=== PATIENT | female | born 1945 | race Caucasian/White ===

== ENCOUNTER 2020-08-17 11:34 | Inpatient (IN) | payer MEDICARE, OTHER ==
[~2020-08-17] VITALS: Ht 167.6 cm; Wt 96.9 kg
[2020-08-17] MEDS ORDERED: MORPHINE SULFATE 4 MG/ML VIAL. IV/SQ PRN (11:45)
[2020-08-17] MEDS ORDERED: NITROGLYCERIN SUBLINGUAL 0.4 MG BOTTLE OF 25. SL PRN ×2 (11:45→19:15)
[2020-08-17 12:01] LABS: BASO % 1 % (0-3); EOS # 0.1 x10^3/uL (0.0-0.7); EOS % 1 % (0-3); HEMATOCRIT 46.3 % (36.0-47.0); HEMOGLOBIN 15.7 g/dL (12.0-15.5); LYMPH # 1.3 x10^3/uL (1.0-4.8); LYMPH % 18 % (24-48); MEAN CORPUSCULAR HEMOGLOBIN 32 pg (25-35); MEAN CORPUSCULAR HGB CONC 34 g/dL (31-37); MEAN CORPUSCULAR VOLUME 95 fL (79-100); MONO # 0.5 x10^3/uL (0.0-1.1); MONO % 8 % (0-9); NEUT # 5.3 x10^3/uL (1.8-7.7); NEUT % 73 % (31-73); PLATELET COUNT 201 x10^3/uL (140-400); RED BLOOD COUNT 4.89 x10^6/uL (3.50-5.40); RED CELL DISTRIBUTION WIDTH 14.2 % (11.5-14.5); WHITE BLOOD COUNT 7.3 x10^3/uL (4.0-11.0)
--- NOTE | 2020-08-17 12:04 | RAD ---
XR CHEST 1V CLINICAL INDICATIONS: Chest pain COMPARISON: None available. Findings: No acute lung infiltrate or pleural effusion or pulmonary edema or lung mass or pneumothora x is seen. Cardiomegaly is evident. The pulmonary vasculature, mediastinum and both vicky are unremark able. IMPRESSION: Cardiomegaly. No acute lung infiltrate. Electronically signed by: Nito Davison MD (08/17/2020 12:01 PM) [id number]
[2020-08-17 12:18] LABS: CALCIUM 8.5 mg/dL (8.5-10.1); CREATININE 0.6 mg/dL (0.6-1.0)
[2020-08-17 12:24] LABS: ALBUMIN 3.4 g/dL (3.4-5.0); ALBUMIN/GLOBULIN RATIO 0.9 (1.0-1.7); MAGNESIUM 2.3 mg/dL (1.8-2.4); TOTAL BILIRUBIN 0.8 mg/dL (0.2-1.0)
[2020-08-17] MEDS ORDERED: ALBUTEROL SULFATE 8GM INHALER. INH SCH (12:45)
[2020-08-17] MEDS ORDERED: DEXAMETHASONE SOD PHOS 20 MG/5 ML VIAL. IV ONE (12:45)
--- NOTE | 2020-08-17 12:50 | PHYS DOC ---
Past Medical History Past Medical History: Arthritis, Asthma, CAD, COPD, Diverticulitis Past Surgical History: Cholecystectomy, Hysterectomy Additional Past Surgical Histo: Partial Hysterectomy Smoking Status: Current Every Day Smoker Alcohol Use: None General Adult EDM: Chief Complaint: SHORTNESS OF BREATH HPI: HPI: Patient is a 74 year old female with a history of COPD, asthma, arthritis, CAD, current smoker, who presents to the ED today with evaluated for shortness of breath and chest pressure. She states shortness of breath has been going on for months. She states since yesterday she has had increased shortness of breath and chest pressure especially on exertion. Denies any fever. Reports chronic cough from COPD. States she had a negative Covid test a week ago. She states a week ago she had a cardiac cath with stent placement at [facility]. Denies any actual chest pain. Review of Systems: Review of Systems: Constitutional: Denies fever or chills. [] Eyes: Denies change in visual acuity. [] HENT: Denies nasal congestion or sore throat. [] Respiratory: Reports chronic cough and shortness of breath. [] Cardiovascular: Reports chest pressure. Denies chest pain or edema. [] GI: Denies abdominal pain, nausea, vomiting, bloody stools or diarrhea. [] : Denies dysuria. [] Musculoskeletal: Denies back pain or joint pain. [] Integument: Denies rash. [] Neurologic: Denies headache, focal weakness or sensory changes. [] Psychiatric: Denies depression or anxiety. [] Heart Score: C/O Chest Pain: No HEART Score for Chest Pain: HEART Score for Chest Pain Response (Comments) Value History Slighlty/Non-Suspicious 0 ECG Normal 0 Age > 65 2 Risk Factors 1 or 2 Risk Factors 1 Troponin < Normal Limit 0 Total 3 Risk Factors: Risk Factors: DM, Current or recent (<one month) smoker, HTN, HLP, family history of CAD, obesity. Risk Scores: Score 0 - 3: 2.5% MACE over next 6 weeks - Discharge Home Score 4 - 6: 20.3% MACE over next 6 weeks - Admit for Clinical Observation Score 7 - 10: 72.7% MACE over next 6 weeks - Early Invasive Strategies Current Medications: Current Medications Medications (Trade) Dose Ordered Sig/Melonie Start Time Stop Time Status Last Admin Dose Admin Albuterol Sulfate (Ventolin Hfa) 2 puff PRN QID 08/17/20 12:45 Dexamethasone Sodium Phosphate (Decadron) 10 mg 1X ONCE 08/17/20 12:45 08/17/20 12:46 Morphine Sulfate (Morphine Sulfate) 4 mg PRN Q15MIN PRN 08/17/20 11:45 08/18/20 11:44 Nitroglycerin (Nitrostat) 0.4 mg PRN Q5MIN PRN 08/17/20 11:45 08/18/20 11:44 Allergies: Allergies: Allergies Coded Allergies Type Severity Reaction Last Updated Verified propoxyphene Allergy Severe 08/17/20 Yes Penicillins Allergy Intermediate 08/17/20 Yes codeine Allergy Intermediate 08/17/20 Yes tetanus and diphtheria toxoids Allergy Intermediate 08/17/20 Yes tuberculin,PPD,multi-puncture Allergy Intermediate 08/17/20 Yes Physical Exam: PE: Constitutional: Well developed, well nourished, no acute distress, non-toxic appearance. [] HENT: Normocephalic, atraumatic, bilateral external ears normal, oropharynx moist, no oral exudates, nose normal. [] Eyes: PERRLA, EOMI, conjunctiva normal, no discharge. [] Neck: Normal range of motion, no tenderness, supple, no stridor. [] Cardiovascular:Heart rate regular rhythm, no murmur [] Lungs & Thorax: Diffuse wheezing throughout the lung bases Abdomen: Bowel sounds normal, soft, no tenderness, no masses, no pulsatile masses. [] Skin: Warm, dry, no erythema, no rash. [] Back: No tenderness, no CVA tenderness. [] Extremities: No tenderness, no cyanosis, no clubbing, ROM intact, no edema. [] Neurologic: Alert and oriented X 3, normal motor function, normal sensory function, no focal deficits noted. [] Psychologic: Affect normal, judgement normal, mood normal. [] Current Patient Data: Labs: Laboratory Tests Test 08/17/20 11:46 White Blood Count 7.3 x10^3/uL (4.0-11.0) Red Blood Count 4.89 x10^6/uL (3.50-5.40) Hemoglobin 15.7 g/dL (12.0-15.5) H Hematocrit 46.3 % (36.0-47.0) Mean Corpuscular Volume 95 fL (79-100) Mean Corpuscular Hemoglobin 32 pg (25-35) Mean Corpuscular Hemoglobin Concent 34 g/dL (31-37) Red Cell Distribution Width 14.2 % (11.5-14.5) Platelet Count 201 x10^3/uL (140-400) Neutrophils (%) (Auto) 73 % (31-73) Lymphocytes (%) (Auto) 18 % (24-48) L Monocytes (%) (Auto) 8 % (0-9) Eosinophils (%) (Auto) 1 % (0-3) Basophils (%) (Auto) 1 % (0-3) Neutrophils # (Auto) 5.3 x10^3/uL (1.8-7.7) Lymphocytes # (Auto) 1.3 x10^3/uL (1.0-4.8) Monocytes # (Auto) 0.5 x10^3/uL (0.0-1.1) Eosinophils # (Auto) 0.1 x10^3/uL (0.0-0.7) Basophils # (Auto) 0.0 x10^3/uL (0.0-0.2) Sodium Level 138 mmol/L (136-145) Potassium Level 5.0 mmol/L (3.5-5.1) Chloride Level 102 mmol/L (98-107) Carbon Dioxide Level 28 mmol/L (21-32) Anion Gap 8 (6-14) Blood Urea Nitrogen 11 mg/dL (7-20) Creatinine 0.6 mg/dL (0.6-1.0) Estimated GFR (Cockcroft-Gault) 98.0 BUN/Creatinine Ratio 18 (6-20) Glucose Level 109 mg/dL (70-99) H Calcium Level 8.5 mg/dL (8.5-10.1) Magnesium Level 2.3 mg/dL (1.8-2.4) Total Bilirubin 0.8 mg/dL (0.2-1.0) Aspartate Amino Transferase (AST) 18 U/L (15-37) Alanine Aminotransferase (ALT) 23 U/L (14-59) Alkaline Phosphatase 82 U/L (46-116) Troponin I Quantitative < 0.017 ng/mL (0.000-0.055) JR-Agu-Z-Type Natriuretic Peptide 1627 pg/mL (0-124) H Total Protein 7.0 g/dL (6.4-8.2) Albumin 3.4 g/dL (3.4-5.0) Albumin/Globulin Ratio 0.9 (1.0-1.7) L Thyroid Stimulating Hormone (TSH) 1.577 uIU/mL (0.358-3.74) Laboratory Tests 08/17/20 11:46 Laboratory Tests 08/17/20 11:46 Vital Signs: Vital Signs Date Time Temp Pulse Resp B/P (MAP) Pulse Ox O2 Delivery O2 Flow Rate FiO2 08/17/20 11:34 97.7 76 20 121/76 (91) 97 Nasal Cannula 3.0 97.7 EKG: EK Interpreted by Dr. Chairez Sinus rhythm with LBBB HR 74 no STEMI[] Radiology/Procedures: Radiology/Procedures: []PROCEDURE: PORTABLE CHEST 1V XR CHEST 1V CLINICAL INDICATIONS: Chest pain COMPARISON: None available. Findings: No acute lung infiltrate or pleural effusion or pulmonary edema or lung mass or pneumothorax is seen. Cardiomegaly is evident. The pulmonary vasculature, mediastinum and both vicky are unremarkable. IMPRESSION: Cardiomegaly. No acute lung infiltrate. Electronically signed by: Nito Davison MD (08/17/2020 12:01 PM) [id number] DICTATED and SIGNED BY: NITO DAVISON MD DATE: 08/17/20 [id number] 0 Course & Med Decision Making: Course & Med Decision Making Pertinent Labs and Imaging studies reviewed. (See chart for details) This is a 74-year-old female patient presented to the ED today with complaints o f shortness of breath and chest pressure, shortness of breath is chronic due to her COPD but has gotten worse since yesterday with chest pressure that began yesterday. O2 sats were hanging around 90% when EMS picked patient and she was put on oxygen 3 L. She states she had a negative Covid test last week. She also had cardiac cath with stent placement last week EKG is negative for any acute findings, chest x-ray is negative for any acute findings, troponin is normal, CBC CMP with no acute findings, BNP 1672. Spoke to Dr. Benoit who accepted patient for admission Routine consult placed for cardiology and fine patcher Austin Disclaimer: [place] Disclaimer: This electronic medical record was generated, in whole or in part, using a voice recognition dictation system. Departure Departure Impression: Primary Impression: COPD exacerbation Additional Impressions: Chest pressure Smoking addiction Disposition: 09 ADMITTED INPT THIS HOSP Condition: STABLE Referrals: SANJU NELSON (PCP) WINDY TROY APRN Aug 17, 2020 12:50
[2020-08-17] MEDS ORDERED: fentaNYL PF VIAL 100 MCG/2 ML VIAL IV PRN (14:15)
[2020-08-17] MEDS ORDERED: ONDANSETRON PF 4 MG/2 ML VIAL. IV PRN (14:15)
[2020-08-17] MEDS ORDERED: ACETAMINOPHEN 325 MG TABLET. PO PRN (14:15)
--- NOTE | 2020-08-17 14:51 | HP ---
ADMIT DATE: 08/17/2020 CHIEF COMPLAINT: Shortness of breath. HISTORY OF PRESENT ILLNESS: The patient is a pleasant 74-year-old female who continues to smoke a pack per day. She has probable near end-stage COPD. Basically, she presented with shortness of breath that has been occurring for several days, rated at 7/10. She has associated chest pressure. She increased her home meds, but that did not work, describes her symptoms as irritating. I discussed the case with the ER physician. We are going to admit the patient and consult Pulmonary Medicine and treat her for COPD. It should be noted that she did have a negative COVID test a week ago. PAST MEDICAL HISTORY: COPD, tobacco abuse, arthritis, asthma, CAD, diverticulitis, cholecystectomy, partial hysterectomy. ALLERGIES: PENICILLIN, CODEINE, PROPOXYPHENE NAPSYLATE, TETANUS, DIPHTHERIA, TUBERCULOSIS. FAMILY HISTORY: Diabetes. SOCIAL HISTORY: She continues to smoke a pack per day. 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 MEDICATIONS: Reviewed, please refer to the MRAD. REVIEW OF SYSTEMS: GENERAL: No history of weight change, weakness or fevers. SKIN: No bruising, hair changes or rashes. EYES: No blurred, double or loss of vision. NOSE AND THROAT: No history of nosebleeds, hoarseness or sore throat. HEART: No history of palpitations, chest pain or shortness of breath on exertion. LUNGS: She complains of shortness of breath and cough. GASTROINTESTINAL: Denies changes in appetite, nausea, vomiting, diarrhea or constipation. GENITOURINARY: No history of frequency, urgency, hesitancy or nocturia. NEUROLOGIC: Denies history of numbness, tingling, tremor or weakness. PSYCHIATRIC: No history of panic, anxiety or depression. ENDOCRINE: No history of heat or cold intolerance, polyuria or polydipsia. EXTREMITIES: Denies muscle weakness, joint pain, pain on walking or stiffness. PHYSICAL EXAMINATION: VITALS: Within normal limits and are stable. GENERAL: No apparent distress. Alert and oriented. HEENT: Normal cephalic atraumatic, external auditory canals are patent. Eyes: Extraocular muscles are intact, pupils are equally round and reactive to light and accommodation. MUSCULOSKELETAL: Well developed, well nourished, good range of motion. ENDOCRINE: No thyromegaly was palpated. LYMPHATICS: No cervical chain or axillary nodes were noted. HEMATOPOIETIC: No bruising. NECK: Supple, no JVD, no thyromegaly was noted. LUNGS: She has decreased breath sounds with some slight crackles. HEART: RRR, S1, S2 present. Peripheral pulses intact, no obvious murmurs were noted. ABDOMEN: Soft, nontender. Positive bowel sounds no organomegaly, normal bowel sounds. EXTREMITIES: Without any cyanosis, clubbing, or edema. Pedal pulses intact, Homans sign is negative. NEUROLOGIC: Normal speech, normal tone. A and O x 3, moves all extremities, no obvious focal deficits. PSYCHIATRIC: Normal affect, normal mood. Stable. SKIN: No ulcerations or rashes, good skin turgor, no jaundice. VASCULAR: Good capillary refill, neurovascular bundle appears to be intact. LABORATORY DATA: White count 7, hemoglobin 15.7, platelets 201. Electrolytes are normal. Chest x-ray shows cardiomegaly. BNP level was 1627. Troponin 0. ASSESSMENT AND PLAN: Respiratory failure, suspect multifactorial including chronic obstructive pulmonary disease and heart failure. The patient has been admitted. We will consult Pulmonary Medicine. Consult Cardiology. IV Lasix, DuoNebs, oxygen, empiric IV antibiotics, steroids, home meds, DVT prophylaxis. Full code. We will recheck her for ellis-19. Trend labs. P.r.n. fentanyl for pain. Check a TSH. Long-term prognosis is guarded. I told her to please quit smoking. DAFNE DIOP DO DR: ANGELO/andi JOB#: [id number] / [id number]
[2020-08-17 16:03] LABS: BILIRUBIN,URINE NEGATIVE (NEG); CLARITY,URINE CLEAR; COLOR,URINE YELLOW; NITRITE,URINE NEGATIVE (NEG); PROTEIN,URINE NEGATIVE (NEG-TRACE)
[2020-08-17 16:09] LABS: BARBITURATES NEG (NEG); BENZODIAZEPINES NEG (NEG); CANNABINOIDS NEG (NEG); COCAINE NEG (NEG); METHADONE NEG (NEG); OPIATES NEG (NEG); PHENCYCLIDINE NEG (NEG)
[2020-08-17 16:10] LABS: BACTERIA,URINE FEW /HPF (0-FEW); RBC,URINE 0 /HPF (0-2)
[2020-08-17 16:13] LABS: AMPHETAMINE/METHAMPHETAMINE NEG (NEG)
[2020-08-17] MEDS ORDERED: METO50TA4 PO (18:00)
[2020-08-17] MEDS ORDERED: FLUT1BLS2 INH (18:00)
[2020-08-17] MEDS ORDERED: CLOP75TA PO (18:00)
[2020-08-17] MEDS ORDERED: ALBU2.5V8 IH (18:00)
[2020-08-17] MEDS ORDERED: TRAM50TA PO (18:03)
[2020-08-17] MEDS ORDERED: METH5TAB85 PO (18:03)
[2020-08-17] MEDS ORDERED: ASPI-630 PO (18:03)
[2020-08-17] MEDS ORDERED: CRESTOR5 MG PO (18:03)
[2020-08-17] MEDS ORDERED: NITR0.4T24 SL (18:03)
[2020-08-17] MEDS ORDERED: LOSA-73 PO (18:03)
--- NOTE | 2020-08-17 18:03 | NUR ---
Admission Note: The patient Ms. Umm Steward 74 year old female admitted due to COPD exacerbation, PUI. She arrived on the unit at 1700 via wheelchair on 3 liters oxygen per nasal cannula. The patient is awake, alert, oriented x 4, VSS, afebrile. She was oriented to the unit, call light placed within reach.
[2020-08-17 19:00] VITALS: BP 128/69
--- NOTE | 2020-08-17 19:07 | EKG ---
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
--- NOTE | 2020-08-17 19:07 | EKG ---
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
[2020-08-17] MEDS ORDERED: ALBUTEROL SULFATE 2.5 MG/3 ML NEBU. INH PRN (19:15)
[2020-08-17] MEDS: ATORVASTATIN CALCIUM 40 MG TABLET. PO SCH (19:54)
[2020-08-17] MEDS: BUDESONIDE 0.5 MG/2 ML NEBU. NEB SCH (20:00)
[2020-08-17] MEDS ORDERED: ALBUTEROL SULFATE 2.5 MG/3 ML NEBU. NEB SCH (20:00)
[2020-08-17] MEDS: ASPIRIN CHEWABLE 81 MG TABLET. PO SCH (22:00)
[2020-08-17] MEDS: LOSARTAN POTASSIUM 25 MG TABLET. PO SCH (22:35)
[2020-08-17] MEDS: METOPROLOL SUCC 24HR ER 50 MG TAB.ER.24H. PO SCH (22:40)
[2020-08-17 23:00] VITALS: BP 119/55
[2020-08-18] MEDS ORDERED: ALBUTEROL SULFATE 8GM INHALER. INH PRN (02:45)
[2020-08-18 03:06] VITALS: BP 81/44
[2020-08-18 06:14] LABS: BASO % 0 % (0-3); EOS % 0 % (0-3); HEMATOCRIT 45.4 % (36.0-47.0); HEMOGLOBIN 14.8 g/dL (12.0-15.5); LYMPH # 1.1 x10^3/uL (1.0-4.8); LYMPH % 12 % (24-48); MEAN CORPUSCULAR HEMOGLOBIN 32 pg (25-35); MEAN CORPUSCULAR HGB CONC 33 g/dL (31-37); MEAN CORPUSCULAR VOLUME 96 fL (79-100); MONO # 0.4 x10^3/uL (0.0-1.1); MONO % 5 % (0-9); NEUT # 7.8 x10^3/uL (1.8-7.7); NEUT % 83 % (31-73); PLATELET COUNT 199 x10^3/uL (140-400); RED BLOOD COUNT 4.71 x10^6/uL (3.50-5.40); RED CELL DISTRIBUTION WIDTH 15.1 % (11.5-14.5); WHITE BLOOD COUNT 9.4 x10^3/uL (4.0-11.0)
[2020-08-18 06:26] LABS: ALBUMIN/GLOBULIN RATIO 0.8 (1.0-1.7); CALCIUM 8.6 mg/dL (8.5-10.1); CREATININE 0.6 mg/dL (0.6-1.0); POTASSIUM 4.8 mmol/L (3.5-5.1); TOTAL BILIRUBIN 0.9 mg/dL (0.2-1.0); TOTAL PROTEIN 6.8 g/dL (6.4-8.2)
[2020-08-18 07:00] VITALS: BP 97/49
[2020-08-18] MEDS: ALBUTEROL SULFATE 8GM INHALER. INH SCH ×4 (08:00→20:59)
[2020-08-18] MEDS: BUDESONIDE 0.5 MG/2 ML NEBU. NEB SCH ×2 (08:00→21:02)
[2020-08-18] MEDS ORDERED: ASPIRIN CHEWABLE 81 MG TABLET. PO SCH (09:00)
[2020-08-18] MEDS ORDERED: METOPROLOL SUCC 24HR ER 50 MG TAB.ER.24H. PO SCH (09:00)
[2020-08-18] MEDS ORDERED: LOSARTAN POTASSIUM 25 MG TABLET. PO SCH (09:00)
[2020-08-18] MEDS: methIMAzole 10 MG TABLET PO SCH (10:03)
[2020-08-18] MEDS: CLOPIDOGREL BISULFATE 75 MG TABLET PO SCH (10:04)
[2020-08-18] MEDS: traMADol 50 MG TABLET PO PRN (10:04)
--- NOTE | 2020-08-18 10:12 | CONS ---
DATE OF CONSULTATION: PULMONARY CONSULTATION ATTENDING PHYSICIAN: Dr. Benoit. REASON FOR CONSULTATION: Dyspnea. HISTORY OF PRESENT ILLNESS: The patient is a 74-year-old obese female with a BMI of 34. She has been a smoker since age , a pack a day. She was brought into the hospital with shortness of breath. The patient states she always has shortness of breath. This was worse. She also describes some wake chest pressure, which starts from her neck into her chest. She said she had a workup done at [facility] recently including cardiac and pulmonary workup. I do not have the details, but she does say that she had a stent done 3 weeks ago. The patient has a cough, which is also chronic. She denies any history of thromboembolism. Her chest x-ray did not reveal any definite infiltrate. The patient is not on home oxygen. Currently, she is requiring oxygen at 3 liters. No headache, no nausea, vomiting, no diarrhea, no dysuria. No focal weakness. I have been asked to see her for further evaluation. PAST MEDICAL HISTORY: History of suspected severe COPD with ongoing tobacco use, history of CAD with recent stent, history of diverticulitis, cholecystectomy, partial hysterectomy. PAST SURGICAL HISTORY: As above. ALLERGIES: PENICILLIN, CODEINE, TETANUS, DIPHTHERIA, PROPOXYPHENE. FAMILY HISTORY: Diabetes. SOCIAL HISTORY: Smoker since age . Still smokes 1 pack per day. MEDICATIONS: Reviewed as listed in the MRAD including albuterol inhaler and Pulmicort. REVIEW OF SYSTEMS: Twelve-point system obtained. Pertinent positives discussed in my history of present illness, otherwise noncontributory. All systems that were negative were reviewed as well. FAMILY HISTORY: Noncontributory to lungs. PHYSICAL EXAMINATION: VITAL SIGNS: Stable. Pulse ox 95% on 3 liters. NECK: Supple. LUNGS: With few rhonchi. CARDIOVASCULAR: With a regular rate. ABDOMEN: Soft, nontender. EXTREMITIES: With no pitting edema. LABORATORY DATA: Reviewed. White cell count 9.4, hemoglobin 14.8 and platelets are 199. BUN is 9 and a creatinine of 0.6. TSH 1.5. IMPRESSION: 1. Acute hypoxic respiratory failure, likely secondary to acute exacerbation of chronic obstructive pulmonary disease and tracheobronchitis. Per patient history, recent cardiac catheterization and stenting done 3 weeks ago at [facility]. No signs of congestive heart failure. 2. Chest pressure. She also complained of some left leg pain. She needs to be ruled out for thromboembolic disease. She was COVID tested negative a week ago. RECOMMENDATIONS: 1. Continue present oxygen. Gradually wean FiO2 to keep saturation 92 and above. 2. Bronchodilators. 3. Smoking cessation counseling provided. 4. Venous Dopplers of lower extremities. 5. CTA chest. She was tested COVID negative a week ago. 6. Discussed with the patient and RN. We will follow along with you. KHARI BEE MD DR: DEVIN/andi JOB#: [id number] / [id number]
--- NOTE | 2020-08-18 10:26 | RAD ---
Examination: Bilateral Lower Extremity Venous Doppler Ultrasound History: Bilateral leg pain Comparison: None Procedure: Cervantes scale, color flow 2D and spectal waveform analysis images are obtained with and witho ut compression in the area of the common femoral vein, superficial femoral vein - femoral vein juncti on, main femoral vein (superficial femoral vein) and popliteal vein. Veins of the proximal calf are a lso imaged. Findings: There is normal duplex flow, color flow and compressibility of all visualized vein segments. No evide nce of deep venous thrombus is present. There is a 2.5 cm cystic structure identified in the right po pliteal region likely a Norris's cyst. Impression: 1. No evidence of deep venous thrombosis bilateral lower extremity venous system. 2. 2.5 cm right popliteal cyst. Electronically signed by: Musa Fair MD (08/18/2020 10:23 AM) [id number]
[2020-08-18 11:00] VITALS: BP 97/62
[2020-08-18] MEDS ORDERED: IOHEXOL 350 MG/ML 100 ML VIAL. IV ONE (11:00)
[2020-08-18] MEDS ORDERED: CONTRAST GIVEN. MC PRN (11:00)
[2020-08-18] MEDS: NICOTINE 21MG PATCH. TD SCH (11:10)
--- NOTE | 2020-08-18 12:14 | PDOC2 ---
CHANELLARMINBEATRIZCATRACHITA ORONA 08/18/20 1214: CARDIAC CONSULT DATE OF CONSULT Date of Consult DATE: 08/18/20 TIME: 12:09 REASON FOR CONSULT Reason for Consult: Chest pressure REFERRING PHYSICIAN Referring Physician: Yamilet Barrientos APRN SOURCE Source: Chart review, Patient HISTORY OF PRESENT ILLNESS HISTORY OF PRESENT ILLNESS This is a 74 yo male who presented secondary to shortness of breath and upper airway, chest pressure. Reports wheezing and rales. No associated dizziness, diaphoresis, palpitations or nausea/vomiting. Has a history of CAD. Underwent PCI/stent about 3 weeks ago at [facility]. Follows with Dr. Matthews. PAST MEDICAL HISTORY Cardiovascular: CAD, CHF, HTN, Hyperlipidemia Pulmonary: COPD GI: Diverticulosis, GERD Psych: Anxiety, Depression Musculoskeletal: Osteoarthritis Endocrine: Hyperparathyroidism PAST SURGICAL HISTORY Past Surgical History: Hysterectomy FAMILY HISTORY Family History: Diabetes SOCIAL HISTORY Smoke: 1 pack per day ALCOHOL: none Drugs: None Lives: with Family CURRENT MEDICATIONS CURRENT MEDICATIONS Current Medications Medications (Trade) Dose Ordered Sig/Melonie Route PRN Reason Start Time Stop Time Status Last Admin Dose Admin Dexamethasone Sodium Phosphate (Decadron) 10 mg 1X ONCE IV 08/17/20 12:45 08/17/20 12:46 DC 08/17/20 13:02 Albuterol Sulfate (Ventolin Hfa) 2 puff PRN QID INH 08/17/20 12:45 08/18/20 02:40 DC 08/17/20 13:15 Clopidogrel Bisulfate (Plavix) 75 mg DAILY PO 08/18/20 09:00 08/18/20 10:04 Tramadol HCl (Ultram) 50 mg PRN Q6HRS PRN PO PAIN MILD TO MOD 08/17/20 19:15 08/18/20 10:04 Methimazole (Tapazole) 5 mg DAILY PO 08/18/20 09:00 08/18/20 10:03 Atorvastatin Calcium (Lipitor) 80 mg QHS PO 08/17/20 21:00 08/17/20 19:54 Budesonide (Pulmicort) 0.5 mg RTBID NEB 08/17/20 20:00 08/18/20 08:00 Losartan Potassium (Cozaar) 25 mg QHS PO 08/17/20 22:00 08/17/20 22:35 Metoprolol Succinate (Toprol Xl) 50 mg QHS PO 08/17/20 22:00 08/17/20 22:40 Albuterol Sulfate (Ventolin Hfa) 2 puff RTQID INH 08/18/20 08:00 08/18/20 11:57 Nicotine (Nicoderm Cq 21mg) 1 patch DAILY TD 08/18/20 10:30 08/18/20 11:10 ALLERGIES ALLERGIES: Coded Allergies: propoxyphene (Verified Allergy, Severe, 08/17/20) Penicillins (Verified Allergy, Intermediate, 08/17/20) codeine (Verified Allergy, Intermediate, 08/17/20) tetanus and diphtheria toxoids (Verified Allergy, Intermediate, 08/17/20) tuberculin,PPD,multi-puncture (Verified Allergy, Intermediate, 08/17/20) ROS Review of System 14 point ROS conducted with pertinent positives noted above in HPi PHYSICAL EXAM General: Alert, Oriented X3, Cooperative, No acute distress HEENT: Atraumatic Lungs: Other (rhonchi ) Heart: Regular rate Abdomen: Soft Extremities: No edema, Normal pulses Skin: No significant lesion Neuro: Normal speech, Sensation intact Psych/Mental Status: Mental status NL, Mood NL MUSCULOSKELETAL: Osteoarthritic changes both hands VITALS/I&O VITALS/I&O: Vital Signs Date Time Temp Pulse Resp B/P (MAP) Pulse Ox O2 Delivery O2 Flow Rate FiO2 08/18/20 11:10 97 Nasal Cannula 3.0 08/18/20 11:00 96.1 71 20 97/62 (74) 96.1 I & O 08/17/20 08/17/20 08/18/20 15:00 23:00 07:00 Output Total 300 ml Balance -300 ml LABS Lab: Laboratory Tests Test 08/17/20 14:39 08/17/20 15:36 08/17/20 17:55 08/18/20 05:04 Troponin I Quantitative < 0.017 ng/mL (0.000-0.055) < 0.017 ng/mL (0.000-0.055) Urine Collection Type Unknown Urine Color Yellow Urine Clarity Clear Urine pH 6.0 (<5.0-8.0) Urine Specific Seffner 1.015 (1.000-1.030) Urine Protein Negative mg/dL (NEG-TRACE) Urine Glucose (UA) Negative mg/dL (NEG) Urine Ketones (Stick) Negative mg/dL (NEG) Urine Blood Negative (NEG) Urine Nitrite Negative (NEG) Urine Bilirubin Negative (NEG) Urine Urobilinogen Dipstick 1.0 mg/dL (0.2 mg/dL) Urine Leukocyte Esterase Trace (NEG) Urine RBC 0 /HPF (0-2) Urine WBC 1-4 /HPF (0-4) Urine Squamous Epithelial Cells Mod /LPF Urine Bacteria Few /HPF (0-FEW) Urine Mucus Mod /LPF Urine Opiates Screen Neg (NEG) Urine Methadone Screen Neg (NEG) Urine Barbiturates Neg (NEG) Urine Phencyclidine Screen Neg (NEG) Urine Amphetamine/Methamphetamine Neg (NEG) Urine Benzodiazepines Screen Neg (NEG) Urine Cocaine Screen Neg (NEG) Urine Cannabinoids Screen Neg (NEG) Urine Ethyl Alcohol Neg (NEG) White Blood Count 9.4 x10^3/uL (4.0-11.0) Red Blood Count 4.71 x10^6/uL (3.50-5.40) Hemoglobin 14.8 g/dL (12.0-15.5) Hematocrit 45.4 % (36.0-47.0) Mean Corpuscular Volume 96 fL (79-100) Mean Corpuscular Hemoglobin 32 pg (25-35) Mean Corpuscular Hemoglobin Concent 33 g/dL (31-37) Red Cell Distribution Width 15.1 % (11.5-14.5) H Platelet Count 199 x10^3/uL (140-400) Neutrophils (%) (Auto) 83 % (31-73) H Lymphocytes (%) (Auto) 12 % (24-48) L Monocytes (%) (Auto) 5 % (0-9) Eosinophils (%) (Auto) 0 % (0-3) Basophils (%) (Auto) 0 % (0-3) Neutrophils # (Auto) 7.8 x10^3/uL (1.8-7.7) H Lymphocytes # (Auto) 1.1 x10^3/uL (1.0-4.8) Monocytes # (Auto) 0.4 x10^3/uL (0.0-1.1) Eosinophils # (Auto) 0.0 x10^3/uL (0.0-0.7) Basophils # (Auto) 0.0 x10^3/uL (0.0-0.2) Test 08/18/20 05:24 Sodium Level 139 mmol/L (136-145) Potassium Level 4.8 mmol/L (3.5-5.1) Chloride Level 103 mmol/L (98-107) Carbon Dioxide Level 32 mmol/L (21-32) Anion Gap 4 (6-14) L Blood Urea Nitrogen 9 mg/dL (7-20) Creatinine 0.6 mg/dL (0.6-1.0) Estimated GFR (Cockcroft-Gault) 98.0 BUN/Creatinine Ratio 15 (6-20) Glucose Level 123 mg/dL (70-99) H Calcium Level 8.6 mg/dL (8.5-10.1) Total Bilirubin 0.9 mg/dL (0.2-1.0) Aspartate Amino Transferase (AST) 11 U/L (15-37) L Alanine Aminotransferase (ALT) 17 U/L (14-59) Alkaline Phosphatase 70 U/L (46-116) Total Protein 6.8 g/dL (6.4-8.2) Albumin 3.0 g/dL (3.4-5.0) L Albumin/Globulin Ratio 0.8 (1.0-1.7) L Laboratory Tests 08/18/20 05:04 Laboratory Tests 08/18/20 05:24 ASSESSMENT/PLAN ASSESSMENT/PLAN 1. Dyspnea with COPD exacerbation. NT Pro BNP mildly elevated, but CXR without pulmonary edema. Doubt overt HF 2. Chest pressure; atypical. Most probably secondary to above. AMI ruled out. 3. CAD s/p recent PCI/stent x1 approximately 3 weeks ago at [facility]. Follows with Dr. Matthews. Reports compliance with ASA/Plavix. Clinically stable. 4. Hypertension; low end 5. Hyperlipidemia 6. Diabetes, II 7. Hyperthyroidism Recommendations Resume secondary prevention measures including ASA/Plavix, statin therapy. Hold losartan, metoprolol as warranted with low end BP Obtain cardiac records from [facility] Ongoing lung optimization as per pulmonary ABIEL COLVIN MD 08/18/20 8531: CARDIAC CONSULT ASSESSMENT/PLAN ASSESSMENT/PLAN The patient was seen and interviewed as well as examined at the bedside. The chart was reviewed. The case was discussed. Agree with the plan of care. BEATRIZ LUA APRN Aug 18, 2020 12:14 ABIEL COLVIN MD Aug 18, 2020 16:58
[2020-08-18] MEDS ORDERED: guaiFENesin ORAL 200 MG/10 ML LIQUID. PO PRN (14:00)
[2020-08-18] MEDS ORDERED: methylPREDNISolone SOD SUCC PF 125 MG/2 ML VIAL. IV SCH (14:00)
--- NOTE | 2020-08-18 14:09 | PDOC ---
[employer] PROGRESS NOTE Date of Service DOS: DATE: 08/18/20 TIME: 13:58 Chief Complaint Chief Complaint Respiratory failure, suspect multifactorial including chronic obstructive pulmonary disease and heart failure. The patient has been admitted. We will consult Pulmonary Medicine. Consult Cardiology. IV Lasix, DuoNebs, oxygen, empiric IV antibiotics, steroids, home meds, DVT prophylaxis. Full code. We will recheck her for ellis-19. Trend labs. P.r.n. fentanyl for pain. Check a TSH. Long-term prognosis is guarded. I told her to please quit smoking. History of Present Illness History of Present Illness The patient is a pleasant 74-year-old female who continues to smoke a pack per day. She has probable near end-stage COPD. Basically, she presented with shortness of breath that has been occurring for several days, rated at 7/10. She has associated chest pressure. She increased her home meds, but that did not work, describes her symptoms as irritating. I discussed the case with the ER physician. We are going to admit the patient and consult Pulmonary Medicine and treat her for COPD. It should be noted that she did have a negative COVID test a week ago. 08/18/2020 Patient seen and evaluated. She reports chronic nonproductive cough. She states she feels like she needs to cough something up, but is having some difficulty doing so. She does mention extensive smoking history. We will add guaifenesin, prednisone, and doxycycline. Vitals/I&O Vitals/I&O: Vital Signs Date Time Temp Pulse Resp B/P (MAP) Pulse Ox O2 Delivery O2 Flow Rate FiO2 08/18/20 11:10 97 Nasal Cannula 3.0 08/18/20 11:00 96.1 71 20 97/62 (74) 96.1 I & O 08/17/20 08/17/20 08/18/20 15:00 23:00 07:00 Output Total 300 ml Balance -300 ml Physical Exam General: Alert, mild distress Heart: Regular rate Lungs: Other (Bilateral coarse breath sounds) Abdomen: Soft, No tenderness Extremities: No clubbing, No cyanosis Skin: No rashes, No breakdown Labs Labs: Laboratory Tests Test 08/17/20 14:39 08/17/20 15:36 08/17/20 17:55 08/18/20 05:04 Troponin I Quantitative < 0.017 ng/mL (0.000-0.055) < 0.017 ng/mL (0.000-0.055) Urine Collection Type Unknown Urine Color Yellow Urine Clarity Clear Urine pH 6.0 (<5.0-8.0) Urine Specific Snow 1.015 (1.000-1.030) Urine Protein Negative mg/dL (NEG-TRACE) Urine Glucose (UA) Negative mg/dL (NEG) Urine Ketones (Stick) Negative mg/dL (NEG) Urine Blood Negative (NEG) Urine Nitrite Negative (NEG) Urine Bilirubin Negative (NEG) Urine Urobilinogen Dipstick 1.0 mg/dL (0.2 mg/dL) Urine Leukocyte Esterase Trace (NEG) Urine RBC 0 /HPF (0-2) Urine WBC 1-4 /HPF (0-4) Urine Squamous Epithelial Cells Mod /LPF Urine Bacteria Few /HPF (0-FEW) Urine Mucus Mod /LPF Urine Opiates Screen Neg (NEG) Urine Methadone Screen Neg (NEG) Urine Barbiturates Neg (NEG) Urine Phencyclidine Screen Neg (NEG) Urine Amphetamine/Methamphetamine Neg (NEG) Urine Benzodiazepines Screen Neg (NEG) Urine Cocaine Screen Neg (NEG) Urine Cannabinoids Screen Neg (NEG) Urine Ethyl Alcohol Neg (NEG) White Blood Count 9.4 x10^3/uL (4.0-11.0) Red Blood Count 4.71 x10^6/uL (3.50-5.40) Hemoglobin 14.8 g/dL (12.0-15.5) Hematocrit 45.4 % (36.0-47.0) Mean Corpuscular Volume 96 fL (79-100) Mean Corpuscular Hemoglobin 32 pg (25-35) Mean Corpuscular Hemoglobin Concent 33 g/dL (31-37) Red Cell Distribution Width 15.1 % (11.5-14.5) Platelet Count 199 x10^3/uL (140-400) Neutrophils (%) (Auto) 83 % (31-73) Lymphocytes (%) (Auto) 12 % (24-48) Monocytes (%) (Auto) 5 % (0-9) Eosinophils (%) (Auto) 0 % (0-3) Basophils (%) (Auto) 0 % (0-3) Neutrophils # (Auto) 7.8 x10^3/uL (1.8-7.7) Lymphocytes # (Auto) 1.1 x10^3/uL (1.0-4.8) Monocytes # (Auto) 0.4 x10^3/uL (0.0-1.1) Eosinophils # (Auto) 0.0 x10^3/uL (0.0-0.7) Basophils # (Auto) 0.0 x10^3/uL (0.0-0.2) Test 08/18/20 05:24 Sodium Level 139 mmol/L (136-145) Potassium Level 4.8 mmol/L (3.5-5.1) Chloride Level 103 mmol/L (98-107) Carbon Dioxide Level 32 mmol/L (21-32) Anion Gap 4 (6-14) Blood Urea Nitrogen 9 mg/dL (7-20) Creatinine 0.6 mg/dL (0.6-1.0) Estimated GFR (Cockcroft-Gault) 98.0 BUN/Creatinine Ratio 15 (6-20) Glucose Level 123 mg/dL (70-99) Calcium Level 8.6 mg/dL (8.5-10.1) Total Bilirubin 0.9 mg/dL (0.2-1.0) Aspartate Amino Transf (AST/SGOT) 11 U/L (15-37) Alanine Aminotransferase (ALT/SGPT) 17 U/L (14-59) Alkaline Phosphatase 70 U/L (46-116) Total Protein 6.8 g/dL (6.4-8.2) Albumin 3.0 g/dL (3.4-5.0) Albumin/Globulin Ratio 0.8 (1.0-1.7) Assessment and Plan Assessmemt and Plan Problems Medical Problems: (1) Chest pressure Status: Acute (2) COPD exacerbation Status: Acute (3) Smoking addiction Status: Acute Comment Review of Relevant I have reviewed the following items diamond (where applicable) has been applied. Medications: Current Medications Medications (Trade) Dose Ordered Sig/Melonie Route PRN Reason Start Time Stop Time Status Last Admin Dose Admin Clopidogrel Bisulfate (Plavix) 75 mg DAILY PO 08/18/20 09:00 08/18/20 10:04 Tramadol HCl (Ultram) 50 mg PRN Q6HRS PRN PO PAIN MILD TO MOD 08/17/20 19:15 08/18/20 10:04 Methimazole (Tapazole) 5 mg DAILY PO 08/18/20 09:00 08/18/20 10:03 Atorvastatin Calcium (Lipitor) 80 mg QHS PO 08/17/20 21:00 08/17/20 19:54 Budesonide (Pulmicort) 0.5 mg RTBID NEB 08/17/20 20:00 08/18/20 08:00 Losartan Potassium (Cozaar) 25 mg QHS PO 08/17/20 22:00 08/17/20 22:35 Metoprolol Succinate (Toprol Xl) 50 mg QHS PO 08/17/20 22:00 08/17/20 22:40 Albuterol Sulfate (Ventolin Hfa) 2 puff RTQID INH 08/18/20 08:00 08/18/20 11:57 Nicotine (Nicoderm Cq 21mg) 1 patch DAILY TD 08/18/20 10:30 08/18/20 11:10 Justifications for Admission Other Justification STEVEN STRICKLAND MD Aug 18, 2020 14:09
[2020-08-18 15:00] VITALS: BP 101/71
[2020-08-18] MEDS ORDERED: methylPREDNISolone SOD SUCC PF 125 MG/2 ML VIAL. IV ONE (15:00)
--- NOTE | 2020-08-18 15:03 | NUR ---
SW following for discharge planning. Pt from home. Pt on 3l 02, COVID pending. Pt on a cardiac diet. SW following.
[2020-08-18] MEDS: DOXYCYCLINE HYCLATE 100 MG in IV DEXTROSE 5% 100ML 100 ML IV SCH ×2 (15:31→20:56)
[2020-08-18 19:00] VITALS: BP 111/58
[2020-08-18] MEDS: METOPROLOL SUCC 24HR ER 50 MG TAB.ER.24H. PO SCH (20:57)
[2020-08-18] MEDS: ATORVASTATIN CALCIUM 40 MG TABLET. PO SCH (20:57)
[2020-08-18] MEDS: LACTOBACILLUS RHAMNOSUS GG 1 CAPSULE. PO SCH (20:57)
[2020-08-18] MEDS: ASPIRIN CHEWABLE 81 MG TABLET. PO SCH (20:57)
[2020-08-18] MEDS: LOSARTAN POTASSIUM 25 MG TABLET. PO SCH (20:58)
[2020-08-18 22:53] VITALS: BP 134/57
[2020-08-19] VITALS (7 sets, daily range): BP systolic 100–139; BP diastolic 53–78
[2020-08-19] MEDS: BUDESONIDE 0.5 MG/2 ML NEBU. NEB SCH ×2 (07:23→21:15)
[2020-08-19] MEDS: ALBUTEROL SULFATE 8GM INHALER. INH SCH ×3 (08:00→16:00)
[2020-08-19 08:14] LABS: BASO # 0.1 x10^3/uL (0.0-0.2); BASO % 1 % (0-3); EOS % 0 % (0-3); HEMATOCRIT 45.8 % (36.0-47.0); HEMOGLOBIN 14.8 g/dL (12.0-15.5); LYMPH # 1.1 x10^3/uL (1.0-4.8); LYMPH % 11 % (24-48); MEAN CORPUSCULAR HEMOGLOBIN 31 pg (25-35); MEAN CORPUSCULAR HGB CONC 32 g/dL (31-37); MEAN CORPUSCULAR VOLUME 97 fL (79-100); MONO # 0.5 x10^3/uL (0.0-1.1); MONO % 4 % (0-9); NEUT # 8.9 x10^3/uL (1.8-7.7); NEUT % 84 % (31-73); PLATELET COUNT 176 x10^3/uL (140-400); RED BLOOD COUNT 4.72 x10^6/uL (3.50-5.40); WHITE BLOOD COUNT 10.5 x10^3/uL (4.0-11.0)
[2020-08-19 08:29] LABS: CALCIUM 8.6 mg/dL (8.5-10.1); CREATININE 0.6 mg/dL (0.6-1.0); POTASSIUM 5.2 mmol/L (3.5-5.1)
[2020-08-19] MEDS: predniSONE 20 MG TABLET PO SCH (09:06)
[2020-08-19] MEDS: LACTOBACILLUS RHAMNOSUS GG 1 CAPSULE. PO SCH ×2 (09:06→20:44)
[2020-08-19] MEDS: NICOTINE 21MG PATCH. TD SCH (09:06)
[2020-08-19] MEDS: methIMAzole 10 MG TABLET PO SCH (09:07)
[2020-08-19] MEDS: CLOPIDOGREL BISULFATE 75 MG TABLET PO SCH (09:07)
[2020-08-19] MEDS: DOXYCYCLINE HYCLATE 100 MG in IV DEXTROSE 5% 100ML 100 ML IV SCH ×2 (09:09→20:44)
--- NOTE | 2020-08-19 09:49 | PDOC ---
PULMONARY PROGRESS NOTES DATE: 08/19/20 TIME: 09:48 Subjective feels better less soa Vitals Vital Signs Date Time Temp Pulse Resp B/P (MAP) Pulse Ox O2 Delivery O2 Flow Rate FiO2 08/19/20 07:00 97.7 66 18 100/54 (69) 92 Nasal Cannula 3.0 97.7 General: Alert, No acute distress Lungs: Clear Cardiovascular: S1 Abdomen: Soft Neuro Exam: Alert Extremities: No Edema Skin: Warm Labs Laboratory Tests Test 08/17/20 11:46 08/17/20 14:39 08/17/20 15:36 08/17/20 17:55 White Blood Count 7.3 x10^3/uL (4.0-11.0) Red Blood Count 4.89 x10^6/uL (3.50-5.40) Hemoglobin 15.7 g/dL (12.0-15.5) Hematocrit 46.3 % (36.0-47.0) Mean Corpuscular Volume 95 fL (79-100) Mean Corpuscular Hemoglobin 32 pg (25-35) Mean Corpuscular Hemoglobin Concent 34 g/dL (31-37) Red Cell Distribution Width 14.2 % (11.5-14.5) Platelet Count 201 x10^3/uL (140-400) Neutrophils (%) (Auto) 73 % (31-73) Lymphocytes (%) (Auto) 18 % (24-48) Monocytes (%) (Auto) 8 % (0-9) Eosinophils (%) (Auto) 1 % (0-3) Basophils (%) (Auto) 1 % (0-3) Neutrophils # (Auto) 5.3 x10^3/uL (1.8-7.7) Lymphocytes # (Auto) 1.3 x10^3/uL (1.0-4.8) Monocytes # (Auto) 0.5 x10^3/uL (0.0-1.1) Eosinophils # (Auto) 0.1 x10^3/uL (0.0-0.7) Basophils # (Auto) 0.0 x10^3/uL (0.0-0.2) Sodium Level 138 mmol/L (136-145) Potassium Level 5.0 mmol/L (3.5-5.1) Chloride Level 102 mmol/L (98-107) Carbon Dioxide Level 28 mmol/L (21-32) Anion Gap 8 (6-14) Blood Urea Nitrogen 11 mg/dL (7-20) Creatinine 0.6 mg/dL (0.6-1.0) Estimated GFR (Cockcroft-Gault) 98.0 BUN/Creatinine Ratio 18 (6-20) Glucose Level 109 mg/dL (70-99) Calcium Level 8.5 mg/dL (8.5-10.1) Magnesium Level 2.3 mg/dL (1.8-2.4) Total Bilirubin 0.8 mg/dL (0.2-1.0) Aspartate Amino Transf (AST/SGOT) 18 U/L (15-37) Alanine Aminotransferase (ALT/SGPT) 23 U/L (14-59) Alkaline Phosphatase 82 U/L (46-116) Troponin I Quantitative < 0.017 ng/mL (0.000-0.055) < 0.017 ng/mL (0.000-0.055) < 0.017 ng/mL (0.000-0.055) KO-[id number]-T-Type Natriuretic Peptide 1627 pg/mL (0-124) Total Protein 7.0 g/dL (6.4-8.2) Albumin 3.4 g/dL (3.4-5.0) Albumin/Globulin Ratio 0.9 (1.0-1.7) Thyroid Stimulating Hormone (TSH) 1.577 uIU/mL (0.358-3.74) Urine Collection Type Unknown Urine Color Yellow Urine Clarity Clear Urine pH 6.0 (<5.0-8.0) Urine Specific Grace 1.015 (1.000-1.030) Urine Protein Negative mg/dL (NEG-TRACE) Urine Glucose (UA) Negative mg/dL (NEG) Urine Ketones (Stick) Negative mg/dL (NEG) Urine Blood Negative (NEG) Urine Nitrite Negative (NEG) Urine Bilirubin Negative (NEG) Urine Urobilinogen Dipstick 1.0 mg/dL (0.2 mg/dL) Urine Leukocyte Esterase Trace (NEG) Urine RBC 0 /HPF (0-2) Urine WBC 1-4 /HPF (0-4) Urine Squamous Epithelial Cells Mod /LPF Urine Bacteria Few /HPF (0-FEW) Urine Mucus Mod /LPF Urine Opiates Screen Neg (NEG) Urine Methadone Screen Neg (NEG) Urine Barbiturates Neg (NEG) Urine Phencyclidine Screen Neg (NEG) Urine Amphetamine/Methamphetamine Neg (NEG) Urine Benzodiazepines Screen Neg (NEG) Urine Cocaine Screen Neg (NEG) Urine Cannabinoids Screen Neg (NEG) Urine Ethyl Alcohol Neg (NEG) Test 08/18/20 05:04 08/18/20 05:24 08/19/20 07:21 White Blood Count 9.4 x10^3/uL (4.0-11.0) 10.5 x10^3/uL (4.0-11.0) Red Blood Count 4.71 x10^6/uL (3.50-5.40) 4.72 x10^6/uL (3.50-5.40) Hemoglobin 14.8 g/dL (12.0-15.5) 14.8 g/dL (12.0-15.5) Hematocrit 45.4 % (36.0-47.0) 45.8 % (36.0-47.0) Mean Corpuscular Volume 96 fL (79-100) 97 fL (79-100) Mean Corpuscular Hemoglobin 32 pg (25-35) 31 pg (25-35) Mean Corpuscular Hemoglobin Concent 33 g/dL (31-37) 32 g/dL (31-37) Red Cell Distribution Width 15.1 % (11.5-14.5) 15.0 % (11.5-14.5) Platelet Count 199 x10^3/uL (140-400) 176 x10^3/uL (140-400) Neutrophils (%) (Auto) 83 % (31-73) 84 % (31-73) Lymphocytes (%) (Auto) 12 % (24-48) 11 % (24-48) Monocytes (%) (Auto) 5 % (0-9) 4 % (0-9) Eosinophils (%) (Auto) 0 % (0-3) 0 % (0-3) Basophils (%) (Auto) 0 % (0-3) 1 % (0-3) Neutrophils # (Auto) 7.8 x10^3/uL (1.8-7.7) 8.9 x10^3/uL (1.8-7.7) Lymphocytes # (Auto) 1.1 x10^3/uL (1.0-4.8) 1.1 x10^3/uL (1.0-4.8) Monocytes # (Auto) 0.4 x10^3/uL (0.0-1.1) 0.5 x10^3/uL (0.0-1.1) Eosinophils # (Auto) 0.0 x10^3/uL (0.0-0.7) 0.0 x10^3/uL (0.0-0.7) Basophils # (Auto) 0.0 x10^3/uL (0.0-0.2) 0.1 x10^3/uL (0.0-0.2) Sodium Level 139 mmol/L (136-145) 138 mmol/L (136-145) Potassium Level 4.8 mmol/L (3.5-5.1) 5.2 mmol/L (3.5-5.1) Chloride Level 103 mmol/L (98-107) 104 mmol/L (98-107) Carbon Dioxide Level 32 mmol/L (21-32) 31 mmol/L (21-32) Anion Gap 4 (6-14) 3 (6-14) Blood Urea Nitrogen 9 mg/dL (7-20) 12 mg/dL (7-20) Creatinine 0.6 mg/dL (0.6-1.0) 0.6 mg/dL (0.6-1.0) Estimated GFR (Cockcroft-Gault) 98.0 98.0 BUN/Creatinine Ratio 15 (6-20) Glucose Level 123 mg/dL (70-99) 101 mg/dL (70-99) Calcium Level 8.6 mg/dL (8.5-10.1) 8.6 mg/dL (8.5-10.1) Total Bilirubin 0.9 mg/dL (0.2-1.0) Aspartate Amino Transf (AST/SGOT) 11 U/L (15-37) Alanine Aminotransferase (ALT/SGPT) 17 U/L (14-59) Alkaline Phosphatase 70 U/L (46-116) Total Protein 6.8 g/dL (6.4-8.2) Albumin 3.0 g/dL (3.4-5.0) Albumin/Globulin Ratio 0.8 (1.0-1.7) Laboratory Tests Test 08/19/20 07:21 White Blood Count 10.5 x10^3/uL (4.0-11.0) Red Blood Count 4.72 x10^6/uL (3.50-5.40) Hemoglobin 14.8 g/dL (12.0-15.5) Hematocrit 45.8 % (36.0-47.0) Mean Corpuscular Volume 97 fL (79-100) Mean Corpuscular Hemoglobin 31 pg (25-35) Mean Corpuscular Hemoglobin Concent 32 g/dL (31-37) Red Cell Distribution Width 15.0 % (11.5-14.5) Platelet Count 176 x10^3/uL (140-400) Neutrophils (%) (Auto) 84 % (31-73) Lymphocytes (%) (Auto) 11 % (24-48) Monocytes (%) (Auto) 4 % (0-9) Eosinophils (%) (Auto) 0 % (0-3) Basophils (%) (Auto) 1 % (0-3) Neutrophils # (Auto) 8.9 x10^3/uL (1.8-7.7) Lymphocytes # (Auto) 1.1 x10^3/uL (1.0-4.8) Monocytes # (Auto) 0.5 x10^3/uL (0.0-1.1) Eosinophils # (Auto) 0.0 x10^3/uL (0.0-0.7) Basophils # (Auto) 0.1 x10^3/uL (0.0-0.2) Sodium Level 138 mmol/L (136-145) Potassium Level 5.2 mmol/L (3.5-5.1) Chloride Level 104 mmol/L (98-107) Carbon Dioxide Level 31 mmol/L (21-32) Anion Gap 3 (6-14) Blood Urea Nitrogen 12 mg/dL (7-20) Creatinine 0.6 mg/dL (0.6-1.0) Estimated GFR (Cockcroft-Gault) 98.0 Glucose Level 101 mg/dL (70-99) Calcium Level 8.6 mg/dL (8.5-10.1) Medications Active Scripts Medications Dose Route/Sig Max Daily Dose Days Date Category Nitrostat (Nitroglycerin) 0.4 Mg Tab.subl 0.4 Mg SL PRN Q5MIN PRN 08/17/20 Reported Aspirin 81 Mg Tab.chew 1 Tab PO DAILY 08/17/20 Reported Losartan Potassium 50 Mg Tablet 25 Mg PO QHS 08/17/20 Reported Tramadol Hcl 50 Mg Tablet 50 Mg PO Q6HRS PRN 08/17/20 Reported Tapazole (Methimazole) 5 Mg Tablet 1 Tab PO DAILY 30 08/17/20 Reported Crestor (Rosuvastatin Calcium) 5 Mg Tablet 20 Mg PO HS 08/17/20 Reported Toprol XL (Metoprolol Succinate) 50 Mg Tab.er.24h 50 Mg PO QHS 08/17/20 Reported Clopidogrel (Clopidogrel Bisulfate) 75 Mg Tablet 1 Tab PO DAILY 08/17/20 Reported Proair Hfa (Albuterol Sulfate) 8.5 Gm Hfa.aer.ad 2 Puff IH PRN Q4-6HRS PRN 21 08/17/20 Reported Breo Ellipta 200-25 Mcg INH (Fluticasone/Vilanterol) 1 Each Blst.w.dev 1 Each INH DAILY 08/17/20 Reported Impression . 1. Acute hypoxic respiratory failure, likely secondary to acute exacerbation of chronic obstructive pulmonary disease and tracheobronchitis. Per patient history, recent cardiac catheterization and stenting done [address] [facility]. No signs of congestive heart failure. 2. Chest pressure. She also complained of some left leg pain. She needs to be ruled out for thromboembolic disease. She was COVID tested negative a week ago. dopplers neg for DVT Plan . 1. Continue present oxygen. Gradually wean FiO2 to keep saturation 92 and above. 2. Bronchodilators. 3. Smoking cessation counseling provided. 4. Venous Dopplers of lower extremities NEG 5. CTA chest Pending. She was tested COVID negative a week ago. 6. Discussed with the patient and RN. We will follow along with you. KHARI BEE MD Aug 19, 2020 09:49
--- NOTE | 2020-08-19 09:54 | PDOC ---
[employer] PROGRESS NOTE Date of Service DOS: DATE: 08/19/20 TIME: 09:50 Chief Complaint Chief Complaint Respiratory failure, suspect multifactorial including chronic obstructive pulmonary disease and heart failure. The patient has been admitted. We will consult Pulmonary Medicine. Consult Cardiology. IV Lasix, DuoNebs, oxygen, empiric IV antibiotics, steroids, home meds, DVT prophylaxis. Full code. We will recheck her for ellis-19. Trend labs. P.r.n. fentanyl for pain. Check a TSH. Long-term prognosis is guarded. I told her to please quit smoking. History of Present Illness History of Present Illness The patient is a pleasant 74-year-old female who continues to smoke a pack per day. She has probable near end-stage COPD. Basically, she presented with shortness of breath that has been occurring for several days, rated at 7/10. She has associated chest pressure. She increased her home meds, but that did not work, describes her symptoms as irritating. I discussed the case with the ER physician. We are going to admit the patient and consult Pulmonary Medicine and treat her for COPD. It should be noted that she did have a negative COVID test a week ago. 08/18/2020 Patient seen and evaluated. She reports chronic nonproductive cough. She states she feels like she needs to cough something up, but is having some difficulty doing so. She does mention extensive smoking history. We will add guaifenesin, prednisone, and doxycycline. 08/19/2020 Patient seen and evaluated. Afebrile. Still complains of some cough and shortness of breath, but states that her cough is "loosening up". CTA chest and COVID-19 still pending. Vitals/I&O Vitals/I&O: Vital Signs Date Time Temp Pulse Resp B/P (MAP) Pulse Ox O2 Delivery O2 Flow Rate FiO2 08/19/20 07:00 97.7 66 18 100/54 (69) 92 Nasal Cannula 3.0 97.7 I & O 08/18/20 08/18/20 08/19/20 15:00 23:00 07:00 Intake Total 400 ml 200 ml Output Total 300 ml Balance 400 ml 200 ml -300 ml Physical Exam General: Alert, Oriented X3, Cooperative, No acute distress Heart: Regular rate Lungs: Clear Abdomen: Soft Extremities: No cyanosis, No edema, Normal pulses Skin: No rashes, No significant lesion Labs Labs: Laboratory Tests Test 08/19/20 07:21 White Blood Count 10.5 x10^3/uL (4.0-11.0) Red Blood Count 4.72 x10^6/uL (3.50-5.40) Hemoglobin 14.8 g/dL (12.0-15.5) Hematocrit 45.8 % (36.0-47.0) Mean Corpuscular Volume 97 fL (79-100) Mean Corpuscular Hemoglobin 31 pg (25-35) Mean Corpuscular Hemoglobin Concent 32 g/dL (31-37) Red Cell Distribution Width 15.0 % (11.5-14.5) Platelet Count 176 x10^3/uL (140-400) Neutrophils (%) (Auto) 84 % (31-73) Lymphocytes (%) (Auto) 11 % (24-48) Monocytes (%) (Auto) 4 % (0-9) Eosinophils (%) (Auto) 0 % (0-3) Basophils (%) (Auto) 1 % (0-3) Neutrophils # (Auto) 8.9 x10^3/uL (1.8-7.7) Lymphocytes # (Auto) 1.1 x10^3/uL (1.0-4.8) Monocytes # (Auto) 0.5 x10^3/uL (0.0-1.1) Eosinophils # (Auto) 0.0 x10^3/uL (0.0-0.7) Basophils # (Auto) 0.1 x10^3/uL (0.0-0.2) Sodium Level 138 mmol/L (136-145) Potassium Level 5.2 mmol/L (3.5-5.1) Chloride Level 104 mmol/L (98-107) Carbon Dioxide Level 31 mmol/L (21-32) Anion Gap 3 (6-14) Blood Urea Nitrogen 12 mg/dL (7-20) Creatinine 0.6 mg/dL (0.6-1.0) Estimated GFR (Cockcroft-Gault) 98.0 Glucose Level 101 mg/dL (70-99) Calcium Level 8.6 mg/dL (8.5-10.1) Assessment and Plan Assessmemt and Plan Problems Medical Problems: (1) Chest pressure Status: Acute (2) COPD exacerbation Status: Acute (3) Smoking addiction Status: Acute Comment Review of Relevant I have reviewed the following items diamond (where applicable) has been applied. Medications: Current Medications Medications (Trade) Dose Ordered Sig/Melonie Route PRN Reason Start Time Stop Time Status Last Admin Dose Admin Nicotine (Nicoderm Cq 21mg) 1 patch DAILY TD 08/18/20 10:30 08/19/20 09:06 Doxycycline Hyclate 100 mg/ Dextrose 100 ml @ 50 mls/hr Q12HR IV 08/18/20 15:00 08/19/20 09:09 Methylprednisolone Sodium Succinate (SOLU-Medrol 125MG VIAL) 125 mg 1X ONCE IV 08/18/20 15:00 08/18/20 15:01 DC 08/18/20 15:30 Prednisone (Prednisone) 40 mg DAILY PO 08/19/20 09:00 08/19/20 09:06 Lactobacillus Rhamnosus (Culturelle) 1 cap BID PO 08/18/20 21:00 08/19/20 09:06 Justifications for Admission Other Justification STEVEN STRICKLAND MD Aug 19, 2020 09:54
--- NOTE | 2020-08-19 11:02 | PDOC ---
BEAT[employer]Z LUA [employer] COURTESY CLERK 08/19/20 1102: CARDIO Progress Notes Date and Time Date of Service 08/19/20 Time of Evaluation 1100 Subjective Subjective: No Chest Pain, No Palpitations, Other (breathing improved. C/o ROCHE) Vitals Vitals Vital Signs Date Time Temp Pulse Resp B/P (MAP) Pulse Ox O2 Delivery O2 Flow Rate FiO2 08/19/20 08:00 Nasal Cannula 3.0 08/19/20 07:00 97.7 66 18 100/54 (69) 92 97.7 Weight Weight [ ] Input and Output Intake and Output Intake and Output 08/19/20 07:00 Intake Total 600 ml Output Total 300 ml Balance 300 ml Intake Oral 600 ml Output Urine Total 300 ml # Voids 2 Laboratory Labs Laboratory Tests Test 08/19/20 07:21 White Blood Count 10.5 x10^3/uL (4.0-11.0) Red Blood Count 4.72 x10^6/uL (3.50-5.40) Hemoglobin 14.8 g/dL (12.0-15.5) Hematocrit 45.8 % (36.0-47.0) Mean Corpuscular Volume 97 fL (79-100) Mean Corpuscular Hemoglobin 31 pg (25-35) Mean Corpuscular Hemoglobin Concent 32 g/dL (31-37) Red Cell Distribution Width 15.0 % (11.5-14.5) Platelet Count 176 x10^3/uL (140-400) Neutrophils (%) (Auto) 84 % (31-73) Lymphocytes (%) (Auto) 11 % (24-48) Monocytes (%) (Auto) 4 % (0-9) Eosinophils (%) (Auto) 0 % (0-3) Basophils (%) (Auto) 1 % (0-3) Neutrophils # (Auto) 8.9 x10^3/uL (1.8-7.7) Lymphocytes # (Auto) 1.1 x10^3/uL (1.0-4.8) Monocytes # (Auto) 0.5 x10^3/uL (0.0-1.1) Eosinophils # (Auto) 0.0 x10^3/uL (0.0-0.7) Basophils # (Auto) 0.1 x10^3/uL (0.0-0.2) Sodium Level 138 mmol/L (136-145) Potassium Level 5.2 mmol/L (3.5-5.1) Chloride Level 104 mmol/L (98-107) Carbon Dioxide Level 31 mmol/L (21-32) Anion Gap 3 (6-14) Blood Urea Nitrogen 12 mg/dL (7-20) Creatinine 0.6 mg/dL (0.6-1.0) Estimated GFR (Cockcroft-Gault) 98.0 Glucose Level 101 mg/dL (70-99) Calcium Level 8.6 mg/dL (8.5-10.1) Microbiology Micro Microbiology 08/17/20 Urine Culture - Final, Complete Physical Exam HEENT: Neck Supple W Full Motion Chest: Symmetric LUNGS: Other (diminished base) Heart: RRR Abdomen: Soft N/T Extremities: No Edema Neurology: alert, oriented, follow commands Assessment Assessment 1. Dyspnea with AE COPD and possible PNA. NT Pro BNP mildly elevated, but CXR without pulmonary edema. Doubt overt HF. CTA negative for PE 2. Chest pressure; atypical. Most probably secondary to above. AMI ruled out. 3. CAD s/p recent PCI/stent x1 approximately 3 weeks ago at [facility]. Follows with Dr. Matthews. Compliant with ASA/Plavix. Clinically stable. 4. Hypertension; low end 5. Hyperlipidemia 6. Diabetes, II 7. Hyperthyroidism Recommendations Continue secondary prevention measures including ASA/Plavix, statin therapy. Ongoing lung optimization as per pulmonary Supportive care Justicifation of Admission Dx: Justifications for Admission: Justification of Admission Dx: Yes Comments: Acute respiratory failure CAD s/p recent PCI/stents ABIEL COLVIN MD 08/19/20 1741: CARDIO Progress Notes Plan Plan Patient seen and examined. Agree with above nurse practitioner note. She continues to have exertional dyspnea. Evaluated by pulmonary service. Low suspicion for primary cardiac process. Awaiting outside hospital records. BEATRIZ LUA APRN Aug 19, 2020 11:02 ABIEL COLVIN MD Aug 19, 2020 17:41
[2020-08-19] MEDS: traMADol 50 MG TABLET PO PRN (12:48)
--- NOTE | 2020-08-19 14:14 | NUR ---
SW following for discharge planning. Pt remains on 3l 02 with home 02. COVID result is negative. Pt on IV Doxycycline. Pt admitted with ES COPD. Consults to pulmonary and cardiology. SW spoke with pt who stated she lives alone. Pt stated she has difficulty with mopping and vacuuming and that her kids live far away. Discussion held about HH vs hospice and the services provided. Pt may qualify for hospice per her ES COPD. Pt declined both HH and hospice stating "if it doesn't get done, it doesn't get done." No anticipated SW needs in discharge. SW following as needed.
--- NOTE | 2020-08-19 14:18 | RAD ---
Examination: CT angiography chest with IV contrast HISTORY: History of chest pain, dyspnea TECHNIQUE: Axial CT angiographic images of chest were performed with IV contrast. Coronal and sagitta l 3-D MIP reformats are performed. Exposure: One or more of the following individualized dose reduction techniques were utilized for thi s examination: 1. Automated exposure control 2. Adjustment of the mA and/or kV according to patient size 3. Use of iterative reconstruction technique. FINDINGS: The central airways are patent. Moderate cardiomegaly. The caliber of the aorta grossly appears unrem arkable.Coronary artery calcifications identified. No evidence of filling defect identified in the main pulmonary arterial trunk and right and left main pulmonary arteries and the visualized lobar, segmental branches of the pulmonary arteries. Moderate consolidation right middle lobe of the lung. Mild right lung base airspace opacities likely atelectasis or infiltrates. Moderate degenerative changes thoracic spine. The liver, spleen, adrenals grossly appears unremarkable. IMPRESSION: 1. No evidence of pulmonary embolism. 2. Moderate consolidation changes identified in the right middle lobe of the lung with air bronchogra ms probably pneumonia recommend close interval follow-up examination to exclude neoplasm. Electronically signed by: Musa Fair MD (08/19/2020 2:16 PM) [id number]
[2020-08-19] MEDS: guaiFENesin DM 600/30MG 1 TAB TAB.ER.12H PO SCH ×2 (14:58→20:45)
[2020-08-19] MEDS: IPRATRPIUM/ALBUTEROL 0.5/2.5MG 3 ML NEBU. NEB SCH (20:15)
[2020-08-19] MEDS: METOPROLOL SUCC 24HR ER 50 MG TAB.ER.24H. PO SCH (20:44)
[2020-08-19] MEDS: ASPIRIN CHEWABLE 81 MG TABLET. PO SCH (20:44)
[2020-08-19] MEDS: ATORVASTATIN CALCIUM 40 MG TABLET. PO SCH (20:45)
[2020-08-19] MEDS: LOSARTAN POTASSIUM 25 MG TABLET. PO SCH (20:45)
[2020-08-20 03:00] VITALS: BP 104/61
[2020-08-20 06:56] LABS: CALCIUM 8.4 mg/dL (8.5-10.1); CREATININE 0.7 mg/dL (0.6-1.0); POTASSIUM 4.3 mmol/L (3.5-5.1)
[2020-08-20] MEDS: IPRATRPIUM/ALBUTEROL 0.5/2.5MG 3 ML NEBU. NEB SCH ×2 (07:48→11:40)
[2020-08-20] MEDS: BUDESONIDE 0.5 MG/2 ML NEBU. NEB SCH (07:48)
[2020-08-20 07:56] VITALS: BP 110/59
[2020-08-20] MEDS: DOXYCYCLINE HYCLATE 100 MG in IV DEXTROSE 5% 100ML 100 ML IV SCH (09:14)
[2020-08-20] MEDS: NICOTINE 21MG PATCH. TD SCH (09:18)
[2020-08-20] MEDS: LACTOBACILLUS RHAMNOSUS GG 1 CAPSULE. PO SCH (09:20)
[2020-08-20] MEDS: methIMAzole 10 MG TABLET PO SCH (09:20)
[2020-08-20] MEDS: guaiFENesin DM 600/30MG 1 TAB TAB.ER.12H PO SCH (09:20)
[2020-08-20] MEDS: predniSONE 20 MG TABLET PO SCH (09:21)
[2020-08-20] MEDS: CLOPIDOGREL BISULFATE 75 MG TABLET PO SCH (09:21)
--- NOTE | 2020-08-20 11:10 | PDOC ---
BEATRIZ LUA JOURNEY LINEMAN 08/20/20 1110: CARDIO Progress Notes Date and Time Date of Service 08/20/20 Time of Evaluation 1110 Subjective Subjective: No Chest Pain, No Palpitations, Other (not more SOA) Vitals Vitals Vital Signs Date Time Temp Pulse Resp B/P (MAP) Pulse Ox O2 Delivery O2 Flow Rate FiO2 08/20/20 07:56 97.5 64 20 110/59 (76) 93 Nasal Cannula 3.0 97.5 Weight Weight [ ] Input and Output Intake and Output Intake and Output 08/20/20 07:00 Intake Total 820 ml Balance 820 ml Intake Oral 820 ml # Voids 3 Laboratory Labs Laboratory Tests Test 08/20/20 05:15 Sodium Level 139 mmol/L (136-145) Potassium Level 4.3 mmol/L (3.5-5.1) Chloride Level 102 mmol/L (98-107) Carbon Dioxide Level 37 mmol/L (21-32) Anion Gap 0 (6-14) Blood Urea Nitrogen 13 mg/dL (7-20) Creatinine 0.7 mg/dL (0.6-1.0) Estimated GFR (Cockcroft-Gault) 82.0 Glucose Level 65 mg/dL (70-99) Calcium Level 8.4 mg/dL (8.5-10.1) Microbiology Micro Microbiology 08/17/20 Urine Culture - Final, Complete Physical Exam HEENT: Neck Supple W Full Motion Chest: Symmetric LUNGS: Other (diminished bases) Heart: RRR Abdomen: Soft N/T Extremities: No Edema Neurology: alert, oriented, follow commands Assessment Assessment 1. Dyspnea with AE COPD and possible PNA. NT Pro BNP mildly elevated, but CXR without pulmonary edema. Doubt overt HF. CTA negative for PE 2. Chest pressure; atypical. Most probably secondary to above. AMI ruled out. 3. CAD s/p recent PCI/MARK to LAD 07/27. Follows with Dr. Matthews, [facility]. Compliant with ASA/Plavix. Clinically stable. 4. Chronic systolic CHF; appears compensated 5. Ischemic cardiomyopathy; Echo 06/26 with LVEF 30-35% 6. Hypertension; low end 7. Hyperlipidemia 8. Diabetes, II 9. Hyperthyroidism Recommendations Continue secondary prevention measures including ASA/Plavix, statin therapy. Ongoing lung optimization Discussed/encouraged smoking cessation Supportive care Follow up with Dr. Habib upon discharge [facility] Records Left Heart Cath 2/15/21 1. Severe single vessel CAD with 70% stenosis involving the mid LAD. 2. Successful PCI of the mid LAD with Resolute [place] 3.0x 15 mm MARK 3. Normal LV filling pressures with no significant gradient across the aortic valve with pullback Carotid Artery Duplex 07/15/20 There is mild to moderate disease in the right carotid arteries and moderate disease in the left carotid arteries. There is 50-69% stenosis in bilateral internal carotid arteries although based on velocities it is more prominent on the left ICA compared to the right. There is normal antegrade flow in bilateral vertebral arteries with no evidence of subclavian artery stenosis Echo 06/27/20 The LV chamber size is mildly dilated There is mild concentric LV hypertrophy There is moderate to severely decreased LV systolic function LVEF 30-35% There is a LV septal wall motion abnormality observed, possible due to presence of BBB There is grade I diastolic dysfunction The left atrium is mildly dilated There is mild mitral regurgitation Unable to estimate the RV systolic pressure Justicifation of Admission Dx: Justifications for Admission: Justification of Admission Dx: Yes ABIEL COLVIN MD 08/20/20 1708: BEATRIZ LUA APRN Aug 20, 2020 11:10 ABIEL COLVIN MD Aug 20, 2020 17:08
[2020-08-20] MEDS: traMADol 50 MG TABLET PO PRN (11:32)
--- NOTE | 2020-08-20 11:35 | PDOC ---
PULMONARY PROGRESS NOTES DATE: 08/20/20 TIME: 11:33 Subjective feels better less soa Vitals Vital Signs Date Time Temp Pulse Resp B/P (MAP) Pulse Ox O2 Delivery O2 Flow Rate FiO2 08/20/20 07:56 97.5 64 20 110/59 (76) 93 Nasal Cannula 3.0 97.5 General: Alert, No acute distress Lungs: Clear Cardiovascular: S1 Abdomen: Soft Neuro Exam: Alert Extremities: No Edema Skin: Warm Labs Laboratory Tests Test 08/19/20 07:21 08/20/20 05:15 White Blood Count 10.5 x10^3/uL (4.0-11.0) Red Blood Count 4.72 x10^6/uL (3.50-5.40) Hemoglobin 14.8 g/dL (12.0-15.5) Hematocrit 45.8 % (36.0-47.0) Mean Corpuscular Volume 97 fL (79-100) Mean Corpuscular Hemoglobin 31 pg (25-35) Mean Corpuscular Hemoglobin Concent 32 g/dL (31-37) Red Cell Distribution Width 15.0 % (11.5-14.5) Platelet Count 176 x10^3/uL (140-400) Neutrophils (%) (Auto) 84 % (31-73) Lymphocytes (%) (Auto) 11 % (24-48) Monocytes (%) (Auto) 4 % (0-9) Eosinophils (%) (Auto) 0 % (0-3) Basophils (%) (Auto) 1 % (0-3) Neutrophils # (Auto) 8.9 x10^3/uL (1.8-7.7) Lymphocytes # (Auto) 1.1 x10^3/uL (1.0-4.8) Monocytes # (Auto) 0.5 x10^3/uL (0.0-1.1) Eosinophils # (Auto) 0.0 x10^3/uL (0.0-0.7) Basophils # (Auto) 0.1 x10^3/uL (0.0-0.2) Sodium Level 138 mmol/L (136-145) 139 mmol/L (136-145) Potassium Level 5.2 mmol/L (3.5-5.1) 4.3 mmol/L (3.5-5.1) Chloride Level 104 mmol/L (98-107) 102 mmol/L (98-107) Carbon Dioxide Level 31 mmol/L (21-32) 37 mmol/L (21-32) Anion Gap 3 (6-14) 0 (6-14) Blood Urea Nitrogen 12 mg/dL (7-20) 13 mg/dL (7-20) Creatinine 0.6 mg/dL (0.6-1.0) 0.7 mg/dL (0.6-1.0) Estimated GFR (Cockcroft-Gault) 98.0 82.0 Glucose Level 101 mg/dL (70-99) 65 mg/dL (70-99) Calcium Level 8.6 mg/dL (8.5-10.1) 8.4 mg/dL (8.5-10.1) Laboratory Tests Test 08/20/20 05:15 Sodium Level 139 mmol/L (136-145) Potassium Level 4.3 mmol/L (3.5-5.1) Chloride Level 102 mmol/L (98-107) Carbon Dioxide Level 37 mmol/L (21-32) Anion Gap 0 (6-14) Blood Urea Nitrogen 13 mg/dL (7-20) Creatinine 0.7 mg/dL (0.6-1.0) Estimated GFR (Cockcroft-Gault) 82.0 Glucose Level 65 mg/dL (70-99) Calcium Level 8.4 mg/dL (8.5-10.1) Medications Active Scripts Medications Dose Route/Sig Max Daily Dose Days Date Category Nitrostat (Nitroglycerin) 0.4 Mg Tab.subl 0.4 Mg SL PRN Q5MIN PRN 08/17/20 Reported Aspirin 81 Mg Tab.chew 1 Tab PO DAILY 08/17/20 Reported Losartan Potassium 50 Mg Tablet 25 Mg PO QHS 08/17/20 Reported Tramadol Hcl 50 Mg Tablet 50 Mg PO Q6HRS PRN 08/17/20 Reported Tapazole (Methimazole) 5 Mg Tablet 1 Tab PO DAILY 30 08/17/20 Reported Crestor (Rosuvastatin Calcium) 5 Mg Tablet 20 Mg PO HS 08/17/20 Reported Toprol XL (Metoprolol Succinate) 50 Mg Tab.er.24h 50 Mg PO QHS 08/17/20 Reported Clopidogrel (Clopidogrel Bisulfate) 75 Mg Tablet 1 Tab PO DAILY 08/17/20 Reported Proair Hfa (Albuterol Sulfate) 8.5 Gm Hfa.aer.ad 2 Puff IH PRN Q4-6HRS PRN 21 08/17/20 Reported Breo Ellipta 200-25 Mcg INH (Fluticasone/Vilanterol) 1 Each Blst.w.dev 1 Each INH DAILY 08/17/[address] chest 1. No evidence of pulmonary embolism. 2. Moderate consolidation changes identified in the right middle lobe of the lung with air bronchograms probably pneumonia recommend close interval follow-up examination to exclude neoplasm. Electronically signed by: Musa Fair MD (08/19/2020 2:16 PM) [id number] Impression . 1. Acute hypoxic respiratory failure, likely secondary to acute exacerbation of chronic obstructive pulmonary disease and Pneumoia. Per patient history, recent cardiac catheterization and stenting done 3 weeks ago at [facility]. No signs of congestive heart failure. 2. Chest pressure. She also complained of some left leg pain. No PE She was COVID tested negative a week ago. dopplers neg for DVT Plan . 1. Gradually wean FiO2 to keep saturation 92 and above. 2. Bronchodilators. 3. Smoking cessation counseling provided. 4. Venous Dopplers of lower extremities NEG 5. CTA chest neg for PE, she has RML pna 6. Discussed with the patient and RN. ok with dc on KHARI Cool MD Aug 20, 2020 11:34
[2020-08-20 11:40] VITALS: BP 102/60
--- NOTE | 2020-08-20 12:15 | NUR ---
SW following for discharge planning. Pt remains on 3l 02. 6 min walk ordered but pt has home 02. SW following. Addendum: 08/20/20 at 1336 by NIKITA TOBAR 6 min walk indicated no home 02 needed. Pt reported to this SW that she has home 02. Discharge plan remans home, self-care. Pt will likely discharge home today, 08/20. Addendum: 08/20/20 at 1537 by NIKITA TOBAR Discharge orders for home, self-care. No further SW needs at this time.
--- NOTE | 2020-08-20 13:47 | PDOC ---
[facility] PROGRESS NOTE Date of Service DOS: DATE: 08/20/20 TIME: 13:45 Chief Complaint Chief Complaint Respiratory failure, suspect multifactorial including chronic obstructive pulmonary disease and heart failure. The patient has been admitted. We will consult Pulmonary Medicine. Consult Cardiology. IV Lasix, DuoNebs, oxygen, empiric IV antibiotics, steroids, home meds, DVT prophylaxis. Full code. We will recheck her for ellis-19. Trend labs. P.r.n. fentanyl for pain. Check a TSH. Long-term prognosis is guarded. I told her to please quit smoking. History of Present Illness History of Present Illness The patient is a pleasant 74-year-old female who continues to smoke a pack per day. She has probable near end-stage COPD. Basically, she presented with shortness of breath that has been occurring for several days, rated at 7/10. She has associated chest pressure. She increased her home meds, but that did not work, describes her symptoms as irritating. I discussed the case with the ER physician. We are going to admit the patient and consult Pulmonary Medicine and treat her for COPD. It should be noted that she did have a negative COVID test a week ago. 08/18/2020 Patient seen and evaluated. She reports chronic nonproductive cough. She states she feels like she needs to cough something up, but is having some difficulty doing so. She does mention extensive smoking history. We will add guaifenesin, prednisone, and doxycycline. 08/19/2020 Patient seen and evaluated. Afebrile. Still complains of some cough and shortness of breath, but states that her cough is "loosening up". CTA chest and COVID-19 still pending. 08/20/2020 Patient breathing much better today, currently denies any shortness of breath on room air. Afebrile. Cough is improved. CTA chest was negative for any PE, and ultrasound lower extremity was negative for any DVT. Discussed case with Dr. Cote, patient may discharge home to complete COPD treatment outpatient. Greater than 30 minutes spent managing discharge of this patient. Vitals/I&O Vitals/I&O: Vital Signs Date Time Temp Pulse Resp B/P (MAP) Pulse Ox O2 Delivery O2 Flow Rate FiO2 08/20/20 12:36 96 Room Air 3.0 08/20/20 11:40 97.9 67 20 102/60 (74) 97.9 I & O 08/19/20 08/19/20 08/20/20 15:00 23:00 07:00 Intake Total 400 ml 300 ml 120 ml Balance 400 ml 300 ml 120 ml Physical Exam General: Alert, Oriented X3, Cooperative, No acute distress Heart: Regular rate Lungs: Clear Abdomen: Soft Extremities: No cyanosis, No edema, Normal pulses Skin: No rashes, No significant lesion Labs Labs: Laboratory Tests Test 08/20/20 05:15 Sodium Level 139 mmol/L (136-145) Potassium Level 4.3 mmol/L (3.5-5.1) Chloride Level 102 mmol/L (98-107) Carbon Dioxide Level 37 mmol/L (21-32) Anion Gap 0 (6-14) Blood Urea Nitrogen 13 mg/dL (7-20) Creatinine 0.7 mg/dL (0.6-1.0) Estimated GFR (Cockcroft-Gault) 82.0 Glucose Level 65 mg/dL (70-99) Calcium Level 8.4 mg/dL (8.5-10.1) Assessment and Plan Assessmemt and Plan Problems Medical Problems: (1) Chest pressure Status: Acute (2) COPD exacerbation Status: Acute (3) Smoking addiction Status: Acute Comment Review of Relevant I have reviewed the following items diamond (where applicable) has been applied. Medications: Current Medications Medications (Trade) Dose Ordered Sig/Melonie Route PRN Reason Start Time Stop Time Status Last Admin Dose Admin Albuterol/ Ipratropium (Duoneb) 3 ml RTQID NEB 08/19/20 20:15 08/20/20 11:40 Justifications for Admission Other Justification STEVEN STRICKLAND MD Aug 20, 2020 13:46
--- NOTE | 2020-08-20 13:49 | PDOC3 ---
Discharge Summary Visit Information Date of Admission: Aug 17, 2020 Date of Discharge: Aug 20, 2020 Final Diagnosis Problems Medical Problems: (1) Chest pressure Status: Acute (2) COPD exacerbation Status: Acute (3) Smoking addiction Status: Acute Brief Hospital Course Allergies Allergies Coded Allergies Type Severity Reaction Last Updated Verified propoxyphene Allergy Severe 08/17/20 Yes Penicillins Allergy Intermediate 08/17/20 Yes codeine Allergy Intermediate 08/17/20 Yes tetanus and diphtheria toxoids Allergy Intermediate 08/17/20 Yes tuberculin,PPD,multi-puncture Allergy Intermediate 08/17/20 Yes Vital Signs Vital Signs Date Time Temp Pulse Resp B/P (MAP) Pulse Ox O2 Delivery O2 Flow Rate FiO2 08/20/20 12:36 96 Room Air 3.0 08/20/20 11:40 97.9 67 20 102/60 (74) 97.9 Lab Results Laboratory Tests Test 08/19/20 07:21 08/20/20 05:15 White Blood Count 10.5 x10^3/uL (4.0-11.0) Red Blood Count 4.72 x10^6/uL (3.50-5.40) Hemoglobin 14.8 g/dL (12.0-15.5) Hematocrit 45.8 % (36.0-47.0) Mean Corpuscular Volume 97 fL (79-100) Mean Corpuscular Hemoglobin 31 pg (25-35) Mean Corpuscular Hemoglobin Concent 32 g/dL (31-37) Red Cell Distribution Width 15.0 % (11.5-14.5) Platelet Count 176 x10^3/uL (140-400) Neutrophils (%) (Auto) 84 % (31-73) Lymphocytes (%) (Auto) 11 % (24-48) Monocytes (%) (Auto) 4 % (0-9) Eosinophils (%) (Auto) 0 % (0-3) Basophils (%) (Auto) 1 % (0-3) Neutrophils # (Auto) 8.9 x10^3/uL (1.8-7.7) Lymphocytes # (Auto) 1.1 x10^3/uL (1.0-4.8) Monocytes # (Auto) 0.5 x10^3/uL (0.0-1.1) Eosinophils # (Auto) 0.0 x10^3/uL (0.0-0.7) Basophils # (Auto) 0.1 x10^3/uL (0.0-0.2) Sodium Level 138 mmol/L (136-145) 139 mmol/L (136-145) Potassium Level 5.2 mmol/L (3.5-5.1) 4.3 mmol/L (3.5-5.1) Chloride Level 104 mmol/L (98-107) 102 mmol/L (98-107) Carbon Dioxide Level 31 mmol/L (21-32) 37 mmol/L (21-32) Anion Gap 3 (6-14) 0 (6-14) Blood Urea Nitrogen 12 mg/dL (7-20) 13 mg/dL (7-20) Creatinine 0.6 mg/dL (0.6-1.0) 0.7 mg/dL (0.6-1.0) Estimated GFR (Cockcroft-Gault) 98.0 82.0 Glucose Level 101 mg/dL (70-99) 65 mg/dL (70-99) Calcium Level 8.6 mg/dL (8.5-10.1) 8.4 mg/dL (8.5-10.1) Laboratory Tests Test 08/20/20 05:15 Sodium Level 139 mmol/L (136-145) Potassium Level 4.3 mmol/L (3.5-5.1) Chloride Level 102 mmol/L (98-107) Carbon Dioxide Level 37 mmol/L (21-32) Anion Gap 0 (6-14) Blood Urea Nitrogen 13 mg/dL (7-20) Creatinine 0.7 mg/dL (0.6-1.0) Estimated GFR (Cockcroft-Gault) 82.0 Glucose Level 65 mg/dL (70-99) Calcium Level 8.4 mg/dL (8.5-10.1) Brief Hospital Course Ms. Steward is a 74 old female who presented with acute COPD exacerbation. Consultation placed to pulmonology and cardiology. She was treated with doxycycline and steroids with improvement. She had a 6-minute walk that did not demonstrate any need for home oxygen. Will discharge patient home with self- care and to complete COPD treatment as outpatient. Recommend follow-up with PCP, cardiology, and pulmonology. Discharge Information Condition at Discharge: Improved Follow Up: Weeks Disposition/Orders: D/C to Home Scheduled Aspirin (Aspirin) 81 Mg Tab.chew, 1 TAB PO DAILY for CAD, #30 Ref 3 (Reported) Entered as Reported by: EMILIA UMANZOR on 08/17/201802 Last Taken: Unknown Dose on 08/17/20 Last Action: Continued on 08/17/201918 by EMILIA UMANZOR Clopidogrel Bisulfate (Clopidogrel) 75 Mg Tablet, 1 TAB PO DAILY for CAD, #90 Ref 1 (Reported) Entered as Reported by: EMILIA UMANZOR on 08/17/201799 Last Taken: Unknown Dose on 08/17/20 Last Action: Continued on 08/17/201918 by EMILIA UMANZOR Fluticasone/Vilanterol (Breo Ellipta 200-25 Mcg INH) 1 Each Blst.w.dev, 1 EACH INH DAILY for COPD, (Reported) Entered as Reported by: EMILIA UMANZOR on 08/17/201799 Last Taken: Unknown Dose on 08/17/20 Last Action: Converted on 08/17/201918 by EMILIA UMANZOR Losartan Potassium (Losartan Potassium) 50 Mg Tablet, 25 MG PO QHS for HYPERTENSION, (Reported) Entered as Reported by: EMILIA UMANZOR on 08/17/201802 Last Taken: Unknown Dose on 08/17/20 Last Action: Edited on 08/17/202140 by PRAMOD HILLS Methimazole (Tapazole) 5 Mg Tablet, 1 TAB PO DAILY for hyperthyroidism for 30 Days, #30 Ref 0 (Reported) Entered as Reported by: EMILIA UMANZOR on 08/17/201802 Last Taken: Unknown Dose on 08/17/20 Last Action: Converted on 08/17/201918 by EMILIA UMANZOR Metoprolol Succinate (Toprol XL) 50 Mg Tab.er.24h, 50 MG PO QHS for FOR HYPERTENSION, (Reported) Entered as Reported by: EMILIA UMANZOR on 08/17/201799 Last Taken: Unknown Dose on 08/17/20 Last Action: Edited on 08/17/202140 by PRAMOD HILLS Rosuvastatin Calcium (Crestor) 5 Mg Tablet, 20 MG PO HS for FOR CHOLESTEROL, #30 Ref 0 (Reported) Entered as Reported by: EMILIA UMANZOR on 3/14/21 1803 Last Taken: Unknown Dose on 08/16/20 Last Action: Converted on 08/17/201918 by EMILIA UMANZOR Scheduled PRN Albuterol Sulfate (Proair Hfa) 8.5 Gm Hfa.aer.ad, 2 PUFF IH PRN Q4-6HRS PRN for wheezing for 21 Days, #1 Ref 0 (Reported) Entered as Reported by: EMILIA UMANZOR on 08/17/20 1800 Last Taken: Unknown Dose on 08/17/20 Last Action: Continued on 08/17/201918 by EMILIA UMANZOR Nitroglycerin (Nitrostat) 0.4 Mg Tab.subl, 0.4 MG SL PRN Q5MIN PRN for CHEST PAIN, (Reported) Entered as Reported by: EMILIA UMANZOR on 08/17/201802 Last Taken: Unknown Dose on Unknown Date & Time Last Action: Continued on 08/17/201918 by EMILIA UMANZOR Tramadol Hcl (Tramadol Hcl) 50 Mg Tablet, 50 MG PO Q6HRS PRN for PAIN, (Reported) Entered as Reported by: EMILIA UMANZOR on 08/17/201802 Last Taken: Unknown Dose on 08/16/20 Last Action: Continued on 08/17/201918 by EMILIA UMANZOR Justicifation of Admission Dx: Justifications for Admission: Justification of Admission Dx: Yes STEVEN STRICKLAND MD Aug 20, 2020 13:49
[2020-08-20] MEDS ORDERED: PRED20TA PO (13:51)
[2020-08-20] MEDS ORDERED: DOXY100T PO (13:51)
--- NOTE | 2020-08-20 16:15 | NUR ---
pt was discharged home with self care today. she did the 6 mins walk and did not need O2 for home. we electronically sent in doxy and prednisone to her pharmacy. informed her to make sure her pulm, cardio and PCP all know about her stay with us and to keep all her appt with them. Elie Cortez RN
== END 2020-08-20 15:30 | disposition home or self-care (01) | DRG 189 ==
LOC: ER 11:34 → 2 SOUTH 14:06 → 6 SOUTH 17:30
PROVIDERS: ADMIT Internal Medicine; ATTEND Internal Medicine
DX: J96.01 Acute respiratory failure with hypoxia (principal); J44.1 Chronic obstructive pulmonary disease with (acute) exacerbation; I50.22 Chronic systolic (congestive) heart failure; I11.0 Hypertensive heart disease with heart failure; E78.5 Hyperlipidemia, unspecified; E11.9 Type 2 diabetes mellitus without complications; E05.90 Thyrotoxicosis, unspecified without thyrotoxic crisis or storm; I25.10 Atherosclerotic heart disease of native coronary artery without angina pectoris; Z98.61 Coronary angioplasty status; Z88.8 Allergy status to other drugs, medicaments and biological substances; Z88.0 Allergy status to penicillin; Z88.7 Allergy status to serum and vaccine; E66.9 Obesity, unspecified; Z68.34 Body mass index [BMI] 34.0-34.9, adult; F17.210 Nicotine dependence, cigarettes, uncomplicated; I25.5 Ischemic cardiomyopathy; Z20.822 Contact with and (suspected) exposure to COVID-19; Z83.3 Family history of diabetes mellitus; Z90.711 Acquired absence of uterus with remaining cervical stump; F32.9 Major depressive disorder, single episode, unspecified; F41.9 Anxiety disorder, unspecified; K21.9 Gastro-esophageal reflux disease without esophagitis; M19.90 Unspecified osteoarthritis, unspecified site; Z71.6 Tobacco abuse counseling
CPT/HCPCS: 36415; 71045; 71275; 80048; 80053; 80307; 81001; 83735; 83880; 84443; 84484; 85025; 87086; 93005; 93970; 94618; 94640; 94760; 96374; 99285; J1100; J2930; J3490; J7060; J7512; U0003; G0378; J7626